=== PATIENT | female | born 1955 | race Hispanic/Latino ===

== ENCOUNTER → 2025-01-18 | Outpatient (CLI) | payer OTHER ==
[~2025-01-18] MED LIST: AMLO-258 PO; DAPA10TA PO; LISI20TA24 PO; METO50TA18 PO; ROSU10TA72 PO; SEMA1PEN3 SQ; SITA25TA5 PO; VITAD50000 PO
--- NOTE | 2025-01-18 15:38 | HMCIMG ---
CT HEART SAVER PROMOTIONAL HISTORY: Calcium scoring COMPARISON: None TECHNIQUE: Computed tomography of the heart was performed with ECG gating and suspended respiration. Postprocessing was performed on a computer workstation to obtain diastolic phase images, determine calcium score and provide a quantitative assessment of extent of disease. This CT included only the heart. HeartSaver score is 1460.5. Please see cardiac calcium score report. The available CT chest images show no acute finding. CT was performed with one or more following dose reduction techniques: automated exposure control, adjustment of the mA and kv according to patient's size, or use of a iterative reconstruction technique.
== END | disposition home or self-care (01) ==
LOC: RAH 14:33
PROVIDERS: ATTEND Internal Medicine Cardiovascular Disease
DX: Z13.6 Encounter for screening for cardiovascular disorders (principal)
CPT/HCPCS: 75571

== ENCOUNTER 2025-01-25 08:37 | Day surgery (SDC) | payer MEDICARE ==
[2025-01-21 12:45] LABS: BASOPHILS # (AUTO) 0.06 K/uL (0.00-0.20); BASOPHILS % (AUTO) 0.6 % (0.0-5.0); EOSINOPHILS # (AUTO) 0.04 K/uL (0.00-0.70); EOSINOPHILS % (AUTO) 0.4 % (0.0-8.0); IMMATURE GRANULOCYTE ABSOLUTE 0.07 K/uL (0-1); LYMPHOCYTES # (AUTO) 1.8 K/uL (1.0-4.8); LYMPHOCYTES % (AUTO) 16.8 % (21.0-51.0); MEAN CORPUSCULAR HEMOGLOBIN 24.5 pg (27.0-33.0); MEAN CORPUSCULAR HGB CONC 32.1 g/dL (32.0-36.0); MEAN CORPUSCULAR VOLUME 76.3 fL (79-99); MONOCYTES # (AUTO) 0.5 K/uL (0.1-1.0); MONOCYTES % (AUTO) 4.6 % (3.0-13.0); NEUTROPHILS # (AUTO) 8.1 K/uL (1.8-7.7); NEUTROPHILS % (AUTO) 76.9 % (40.0-77.0); PLATELET COUNT (AUTO) 315 K/uL (130-400); RED BLOOD CELL COUNT(AUTO) 4.98 MIL/uL (4.00-5.50); RED CELL DISTRIBUTION WIDTH 16.1 % (11.0-15.5); WHITE BLOOD COUNT (AUTO) 10.5 K/uL (4.8-10.8)
[2025-01-21 12:49] VITALS: BP 117/65; PULSE 82; RESP 14; TEMP 97.3
[2025-01-21 12:56] LABS: INR 0.99 (0.85-1.15); PROTHROMBIN TIME 10.5 SEC (9.6-11.6)
[2025-01-21 12:58] LABS: PARTIAL THROMBOPLASTIN TIME 25.7 SEC (26.3-35.5)
[2025-01-21 13:00] LABS: ALBUMIN 3.5 g/dL (3.5-5.0); BILIRUBIN,TOTAL 0.5 mg/dL (0.2-1.0); POTASSIUM 4.8 mmol/L (3.5-5.1); TOTAL PROTEIN, SERUM 8.1 g/dL (6.0-8.3)
--- NOTE | 2025-01-21 14:23 | EKG ---
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
--- NOTE | 2025-01-24 16:35 | NUR ---
REPORTED REPORTED CMP TO DR HAYS AND DR JACKSON. NO RESPONSE. PLEASE FOLLOW UP IN AM
--- NOTE | 2025-01-24 16:41 | NUR ---
F/U CMP REPORTED TO STEPHANIE WALLS. OK TO PROCEED
[2025-01-25] VITALS (12 sets, daily range): BP systolic 100–131; BP diastolic 43–69; PULSE 65–80; RESP 16–22; TEMP 97.4–98.2
[~2025-01-25] VITALS: Ht 170.2 cm; Wt 102.4 kg
[2025-01-25] MEDS ORDERED: GABAPENTIN 300 MG CAPSULE ONE (08:40)
[2025-01-25] MEDS ORDERED: acetaMINOPHEN 100 ML ONE (08:41)
[2025-01-25] MEDS ORDERED: FAMOTIDINE 20MG VIAL IV ONE (08:41)
[2025-01-25] MEDS ORDERED: 0.9%NACL 1000ML 1,000 ML IV ONE (08:42)
[2025-01-25] MEDS ORDERED: proPOFol 10 MG/ML 20ML VIAL IV ONE (08:43)
[2025-01-25] MEDS ORDERED: LIDOCAINE PF 100MG/5ML (2%) SYRINGE 5ML ONE (08:43)
[2025-01-25] MEDS ORDERED: rocuRONium bROMide 10MG/1ML 5ML VL ONE ×2 (08:43→10:37)
[2025-01-25] MEDS ORDERED: FENTanyl CITRate PF 50 MCG/1 ML 2ML VIAL ONE (08:44)
[2025-01-25] MEDS ORDERED: ketaMINE 50MG/ML SYRINGE 50 MG/ML DISP.SYRIN ONE (08:45)
[2025-01-25] MEDS ORDERED: ondanSETRON 4MG INJ ONE (09:42)
[2025-01-25] MEDS ORDERED: dexaMETHasone SOD PHOSPHATE 10MG/ML 1ML VIAL ONE (09:42)
[2025-01-25] MEDS: MEROPENEM 1GM 1 GM VIAL ONE (09:55)
[2025-01-25] MEDS ORDERED: ePHEDrine SULFate 50 MG/ML AMPULE ONE (10:11)
[2025-01-25] MEDS ORDERED: NEOSTIGMINE METHYLSULFATE 1MG/ML IV ONE (10:57)
[2025-01-25] MEDS ORDERED: GLYCOPYRROLATE 0.2 MG/ML 5 ML VIAL ONE (10:57)
[2025-01-25] MEDS ORDERED: SUGAMMADEX SODIUM 200 MG/2 ML VIAL IV ONE (11:09)
--- NOTE | 2025-01-25 11:17 | OP ---
Operative Note: DATE OF PROCEDURE: 01/25/25 SURGEON: ARETHA MARCH MD WELDER SETTER RESISTANCE MACHINE: None ANESTHESIA: General ANESTHESIOLOGIST/ENTRY ANALYST: ENTRY ANALYST] PREOPERATIVE DIAGNOSIS: Rectal polyp POSTOPERATIVE DIAGNOSIS: Rectal polyp PROCEDURE: Robotic transanal excision of rectal polyp, full-thickness Flexible sigmoidoscopy ESTIMATED BLOOD LOSS: Minimal less than 10 cc INDICATIONS: Ms. 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 She was offered surgical management wished to proceed. Complications, alternatives, risks and benefits of the procedure were discussed and include but not limited to infection, bleeding, injury to surrounding structures such as blood vessels nerves and the sphincter complex leading to incontinence, postoperative pain, poor bowel function, recurrence of disease as was the need for additional procedures. The patient voiced complete understanding wished to proceed with surgery. All of her questions were answered to her satisfaction. DESCRIPTION OF PROCEDURE: After informed consent was obtained, the patient was taken to the operating room and laid in the supine position. Once general endotracheal anesthesia was obtained, the patient was carefully placed into lithotomy position. Next the perianal area was prepped and draped in the usual sterile fashion. A time-out was performed confirming the correct patient procedure. Next a bilateral pudendal block was performed followed by insertion of the TAMIS device. Numeral rectum was obtained and a camera was inserted. There is a well-defined posterior midline rectal polyp of the 1st rectal valve with the associated tattoo. We then docked the robot in the usual sterile fashion. The mucosa was scored 1 cm circumferentially around the polyp. We then obtained a full- thickness incision down to the perirectal fat and sphincter muscle. We then excised the polyp in a full-thickness manner en bloc. The polyp was removed and sent to pathology. There was some bleeding from the muscle we used bipolar cautery and electrocautery to gain hemostasis. The wound was then irrigated with saline and hemostasis was confirmed. We then closed the defect with the two separate V lock sutures in a transverse manner. We then removed the TAMIS device. At completion of the case we performed a flexible sigmoidoscopy there were no additional pathology appreciated. Again the suture line was confirmed to have hemostasis. Additional local anesthetic was injected for postop pain control. The patient tolerated the procedure well and taken to the recovery room stable condition. I discussed the above with the family completion of the case. Specimens rectal mass/polyp Complications none Counts were reported as correct x2 by nursing staff ARETHA MARCH MD Jan 25, 2025 11:17
[2025-01-25] MEDS: LIDOCAINE 1%-EPI 1:100,000 20 ML VIAL ONE (11:31)
[2025-01-25] MEDS: BUPIvacaine/PF 0.25% 30ML VIAL IJ ONE (11:33)
--- NOTE | 2025-01-25 12:28 | NUR ---
Full and complete discharge instructions given to Patient and Family both verbally and in writing. Explained Surgical procedure precautions and follow up. Internal mass removal. No evidence of bleeding evident. All questions answered. PIV removed with catheter tip intact. Daughter at bedside appearing supportive. W/C to POV with Daughter to home
== END 2025-01-25 12:20 | disposition home or self-care (01) ==
LOC: DAH 08:37
PROVIDERS: ATTEND Surgery
DX: K62.1 Rectal polyp (principal); I10 Essential (primary) hypertension; E11.9 Type 2 diabetes mellitus without complications; I25.10 Atherosclerotic heart disease of native coronary artery without angina pectoris; E78.5 Hyperlipidemia, unspecified; Z79.01 Long term (current) use of anticoagulants; Z79.4 Long term (current) use of insulin; Z79.899 Other long term (current) drug therapy
CPT/HCPCS: 45172; S2900; 36415; 45330; 80053; 82948; 85025; 85610; 85730; 86850; 86900; 86901; 88305; 93005; J1100; J2003; J2185; J2405; J2704; J2710; J3010; J3490; J7030; J7120; A4213; A4215; A4216; A4221; A4222; A4223; A4600; A4649; A4663; A4930; A6260; J0665